=== PATIENT | male | born 1985 | race Two or more races ===

== ENCOUNTER 2020-05-25 13:52 | Emergency (ER) | payer MEDICAID ==
[~2020-05-25] VITALS: Ht 167.6 cm; Wt 90.9 kg
[2020-05-25] MEDS ORDERED: ibuprofen tablet 400 MG TABLET PO ONE (14:10)
[2020-05-25] MEDS ORDERED: LIDOcaine 1% W/epiNEPHrine 1:200,000 10ml vial IJ ONE ×2 (14:10→15:00)
[2020-05-25] MEDS ORDERED: TETanus/Pertussis (Acell)/Diphther VAC/PF (Tdap-Adult) 0.5ml syringe IMVAC ONE (14:10)
[2020-05-25 14:13] VITALS: BP 130/83
[2020-05-25] MEDS ORDERED: AMOX-422 PO (15:46)
== END 2020-05-25 16:09 | disposition home or self-care (01) ==
LOC: ER 13:54
DX: S81.811A Laceration without foreign body, right lower leg, initial encounter (principal); Z79.2 Long term (current) use of antibiotics; W54.0XXA Bitten by dog, initial encounter; Y93.89 Activity, other specified; Y92.89 Other specified places as the place of occurrence of the external cause; Y99.8 Other external cause status
CPT/HCPCS: 12002; 73590; 90471; 90715; 99283